=== PATIENT | female | born 1990 | race Two or more races ===

== ENCOUNTER 2016-05-07 21:37 | Emergency (ER) | payer OTHER ==
[2016-05-07 22:52] LABS: URINE BILIRUBIN NEGATIVE (NEGATIVE); URINE BLOOD 1+ (NEGATIVE); URINE GLUCOSE (UA) NEGATIVE (NEGATIVE); URINE LEUKOCYTE ESTERASE NEGATIVE (NEGATIVE); URINE NITRITE NEGATIVE (NEGATIVE); URINE PROTEIN NEGATIVE (NEGATIVE); URINE UROBILINOGEN NORMAL (0-1 mg/dl)
[2016-05-07 22:59] LABS: HCG,QUALITATIVE URINE POSITIVE
[2016-05-07 23:02] LABS: URINE APPEARANCE CLEAR; URINE COLOR YELLOW
[2016-05-07 23:27] LABS: URINE BACTERIA TRACE; URINE WBC 0-1 /hpf
== END 2016-05-08 01:13 | disposition home or self-care (01) ==
LOC: ED 21:37
DX: O03.9 Complete or unspecified spontaneous abortion without complication (principal); Z3A.01 Less than 8 weeks gestation of pregnancy